=== PATIENT | male | born 1985 | race Two or more races ===

== ENCOUNTER 2021-07-11 19:00 | Emergency (ER) | payer MEDICAID, OTHER ==
[~2021-07-11] VITALS: Ht 160 cm; Wt 55.8 kg
--- NOTE | 2021-07-11 19:24 | NUR ---
pt ambulated to room [address] Wagner at bedside for MSE.
[2021-07-11] MEDS ORDERED: IBUPROFEN 400 MG TABLET PO ONE (19:45)
[2021-07-11] MEDS ORDERED: HYDROCODONE/APAP 10-325 MG TABLET PO ONE (19:45)
[2021-07-11] MEDS ORDERED: ACETAMINOPHEN 325 MG TABLET PO ONE (19:45)
--- NOTE | 2021-07-11 19:45 | NUR ---
pt taken to CT scan.
[2021-07-11] MEDS ORDERED: IBUPROFEN 400 MG TABLET ONE (19:46)
[2021-07-11] MEDS ORDERED: HYDROCODONE/APAP 10-325 MG TABLET ONE (19:46)
[2021-07-11] MEDS ORDERED: ACETAMINOPHEN 325 MG TABLET ONE (19:46)
--- NOTE | 2021-07-11 19:55 | NUR ---
pt returned from cat scan.
[2021-07-11] MEDS ORDERED: CYCLOBENZAPRINE HCL 10 MG TABLET PO ONE (21:00)
[2021-07-11] MEDS ORDERED: CYCLOBENZAPRINE HCL 10 MG TABLET ONE (21:11)
[2021-07-11] MEDS ORDERED: OXYC5CAP18 PO (21:12)
[2021-07-11] MEDS ORDERED: CYCL15CA23 PO (21:12)
[2021-07-11 21:18] VITALS: BP 122/70
--- NOTE | 2021-07-11 21:18 | NUR ---
Patient discharged to home in stable condition. Written and verbal after care instructions given. Patient verbalizes understanding of instructions. Stressed follow up or return to ER for worsening s/s. pt ambulated with steady gait. No SOB or fever.
== END 2021-07-11 21:19 | disposition home or self-care (01) ==
LOC: ER 19:01
DX: M54.50 Low back pain, unspecified (principal); M48.07 Spinal stenosis, lumbosacral region
CPT/HCPCS: 72131; A4663